=== PATIENT | male | born 1970 | race African-American/Black ===

== ENCOUNTER 2017-01-23 10:59 | Emergency (ER) | payer SELFPAY ==
[~2017-01-23] VITALS: Ht 190.5 cm; Wt 85.0 kg
[~2017-01-23 10:59] MED LIST: BACT800T5 PO; CEPH500C3 PO; HYDR-3535 PO; IBUP800T23 PO
[2017-01-23 11:01] VITALS: BP 119/81; PULSE 64; RESP 12; TEMP 98.4; O2SAT 100
[2017-01-23] MEDS ORDERED: IBUPROFEN 800 MG TAB PO ONE (11:45)
[2017-01-23] MEDS ORDERED: IBUP1TAB7 PO (11:53)
--- NOTE | 2017-01-23 11:53 | PD ---
HPI Chief Complaint: Bite or Sting Time Seen by Provider: 11:43 Travel History International Travel<30 days: No Contact w/Intl Traveler<30days: No History of Present Illness HPI 46-year-old male presents to the emergency Department with complaint of left knee pain and swelling 2 weeks. Denies injury. Thinks he got bit by a spider causing the swelling. Location of pain is to the medial and posterior aspect of the knee. Denies fever, vomiting. Denies paresthesias, loss of sensation, decreased range of motion, decreased strength to the affected extremity. He is ambulatory in the affected extremity. Has been taking Miladys aspirin for symptom management. Rates pain 8/10. Describes pain as throbbing and sometimes shooting. Pain is aggravated with flexion, ambulation, palpation. Pain decreased while at rest. Has no other medical complaints. No known allergies. No other modifying factors or associated signs and symptoms. PFSH Social History Alcohol Use: No Tobacco Use: Yes Substance Use: Yes Allergies-Medications (Allergen,Severity, Reaction): Coded Allergies: No Known Allergies (Verified Adverse Reaction, Unknown, 01/23/17) Reported Meds & Prescriptions Reported Meds & Active Scripts Active Keflex (Cephalexin) 500 Mg Cap 500 Mg PO Q8H 7 Days Ibuprofen 800 Mg Tab 800 Mg PO Q6HR PRN Keflex (Cephalexin Monohydrate) 500 Mg Cap 1 Tab PO QID 10 Days Bactrim DS (Sulfamethoxazole-Trimethoprim DS) 1 Tab Tab 1 Tab PO BID 10 Days Ibuprofen 800 Mg Tab 800 Mg PO TID 10 Days Reported Lortab 10 mg/325 mg (Hydrocodone/Acetaminophen 10 mg/325 mg) 1 Tab 1 Tab PO Q4H PRN Review of Systems Except as stated in HPI: all other systems reviewed are Neg Physical Exam Narrative GENERAL: Well-nourished, well-developed black male patient, in no acute distress ; afebrile, nontoxic-appearing SKIN: Warm and dry. HEAD: Atraumatic. Normocephalic. EYES: Pupils equal and round. No scleral icterus. No injection or drainage. ENT: Mucosa pink and moist. Airway patent. NECK: Trachea midline. CARDIOVASCULAR: Regular rate. RESPIRATORY: No accessory muscle use. GASTROINTESTINAL: Flat. MUSCULOSKELETAL: Left knee mildly edematous, nonerythematous, and without ecchymosis; full range of motion and flexion to 90; point tenderness to the medial and posterior aspect; joint stable with negative drawer test; no obvious deformity. Left Lower extremity is supple and non-tense with 2+ pedal pulse and sensory intact and without erythema or edema. No cyanosis. NEUROLOGICAL: Awake and alert. Oriented 3. No obvious cranial nerve deficits. Motor grossly within normal limits. Normal speech. PSYCHIATRIC: Appropriate mood and affect; insight and judgment normal. Data Data Last Documented VS Vital Signs Date Time Temp Pulse Resp B/P (MAP) Pulse Ox O2 Delivery O2 Flow Rate FiO2 01/23/17 12:26 01/23/17 11:01 98.4 64 12 100 Orders Orders Ibuprofen (Motrin) (01/23/17 11:45) Knee, Complete (4vws) (01/23/17 11:42) Crutches (01/23/17 11:42) Ed Discharge Order (01/23/17 12:25) MDM Medical Decision Making Medical Screen Exam Complete: Yes Emergency Medical Condition: Yes Medical Record Reviewed: Yes Differential Diagnosis Arthritis, bursitis, knee strain, less likely insect bite Narrative Course 46-year-old male with left knee pain. Ibuprofen administered in the ER. Left knee x-ray ordered. 1219: Left knee xray concludes: Knee X-Ray 01/23/17 1142 Signed Impressions: Service Date/Time: Monday, January 23, 2017 11:50 - CONCLUSION: Soft tissue swelling otherwise normal appearing osseous structures. Asa Michel MD X-ray report discussed with the patient. Patient is requesting antibiotics because he thinks the swelling is due to insect bite. I do not see any area around the knee that is consistent with cellulitis and the knee is without erythema. I discussed this with the patient and he would like a prescription for antibiotics. Keflex and ibuprofen prescribed for home. Patient refused crutches. Instructed patient to follow up with orthopedics as needed. Instructed patient to follow up with primary care provider. Patient verbalizes understanding and agreement with treatment plan. Patient is medically cleared and stable for discharge. Discussed reasons to return to the emergency department. Patient agrees with treatment plan. The patients vital signs are stable and the patient is stable for outpatient follow-up and treatment. Patient discharged home, stable and in no acute distress. Diagnosis Primary Impression: Left knee pain Qualified Codes: M25.562 - Pain in left knee Referrals: [facility] Orthopaedic Surgeon Primary Care Physician Patient Instructions: General Instructions, Knee Pain (ED) Additional Instructions: Tylenol or ibuprofen as needed and as directed to reduce pain and inflammation Rest, ice, compress, and elevate extremity to decrease pain and inflammation Knee brace for support Crutches for support Avoid aggravating activity; increase activity as tolerated Follow-up with primary care provider Follow-up with orthopedics Return to the emergency department immediately with worsening symptoms Med/Other Pt SpecificInfo: Prescription(s) given Scripts Cephalexin (Keflex) 500 Mg Cap 500 MG PO Q8H for Infection for 7 Days, #21 CAP 0 Refills Prov: Anai Mejía 01/23/17 Ibuprofen (Ibuprofen) 800 Mg Tab 800 MG PO Q6HR Y for PAIN, #30 TAB 0 Refills Prov: Anai Mejía 01/23/17 Disposition: 01 DISCHARGE HOME Condition: Stable Anai Mejía Jan 23, 2017 11:53
--- NOTE | 2017-01-23 12:17 | RADRPT ---
EXAM DATE/TIME: 01/23/2017 11:50 [facility] COMPARISON: No previous studies available for comparison. INDICATIONS : Pain and swelling left knee, possible insect bite MEDICAL HISTORY : None. SURGICAL HISTORY : None. ENCOUNTER: Initial ACUITY: 2 weeks PAIN SCORE: 8/10 LOCATION: Left Knee FINDINGS: Four view examination of the left knee demonstrates no evidence of fracture or dislocation. Bony min eralization is normal. The articular surfaces are intact. Soft tissue swelling is identified in the distal thigh. CONCLUSION: Soft tissue swelling otherwise normal appearing osseous structures. Asa Michel MD on January 23, 2017 at 12:15 Board Certified Radiologist. This report was verified electronically.
[2017-01-23] MEDS ORDERED: CEPH-460 PO (12:25)
== END 2017-01-23 12:33 | disposition home or self-care (01) ==
LOC: NEPK 10:59
DX: M25.562 Pain in left knee (principal); R22.42 Localized swelling, mass and lump, left lower limb; Z72.0 Tobacco use
CPT/HCPCS: 73564; 99283; E0113; L1830

== ENCOUNTER 2017-04-20 10:48 | Emergency (ER) | payer SELFPAY ==
[~2017-04-20] VITALS: Ht 190.5 cm; Wt 86.0 kg
[~2017-04-20 10:48] MED LIST changes: +CEPH-460 PO; +IBUP1TAB7 PO
[2017-04-20 10:49] VITALS: BP 134/77; PULSE 72; RESP 16; TEMP 99.1; O2SAT 98
[2017-04-20] MEDS ORDERED: KETOROLAC TROMETHAMINE 60 MG/2 ML (IM) VIAL IM ONE (11:00)
[2017-04-20] MEDS ORDERED: MORPHINE SULFATE 4 MG/ML INJ IM ONE (11:00)
[2017-04-20] MEDS ORDERED: ONDANSETRON ODT 4 MG TAB PO ONE (11:00)
--- NOTE | 2017-04-20 11:27 | PD ---
HPI Chief Complaint: Pain: Acute or Chronic Time Seen by Provider: 10:57 Travel History International Travel<30 days: No Contact w/Intl Traveler<30days: No Traveled to known affect area: No History of Present Illness HPI 46-year-old male that presents to the ED for evaluation of back pain. Per patient she's had back pain since 2014 but the past couple days she's been having worsening symptoms. History is limited as patient does appear to be in significant discomfort. He is able to really answer questions more than yes or no and he appears to be in a lot of pain. Per patient his pain is severe. Seems to come in spasms. Per patient he denies any injury but states that he's been working a lot. He denies any numbness, tilling, weakness. No urinary or bowel movement issues.Has not seen anybody for this. Per patient he is not taking anything for this. Pain appears to be 10 out of 10. Has no allergies to medication. No other medical issues at this time. [facility] [place] Social History Alcohol Use: No Tobacco Use: Yes Substance Use: Yes Allergies-Medications (Allergen,Severity, Reaction): Coded Allergies: No Known Allergies (Verified Adverse Reaction, Unknown, 01/23/17) Reported Meds & Prescriptions Reported Meds & Active Scripts Active Robaxin (Methocarbamol) 500 Mg Tab 500 Mg PO QID Hydrocodone-Acetaminophen 5-325 mg Tab 1 Tab PO Q4H PRN Diclofenac Sodium DR (Diclofenac Sodium) 75 Mg Tabdr 75 Mg PO BID PRN Keflex (Cephalexin) 500 Mg Cap 500 Mg PO Q8H 7 Days Ibuprofen 800 Mg Tab 800 Mg PO Q6HR PRN Keflex (Cephalexin Monohydrate) 500 Mg Cap 1 Tab PO QID 10 Days Bactrim DS (Sulfamethoxazole-Trimethoprim DS) 1 Tab Tab 1 Tab PO BID 10 Days Ibuprofen 800 Mg Tab 800 Mg PO TID 10 Days Reported Lortab 10 mg/325 mg (Hydrocodone/Acetaminophen 10 mg/325 mg) 1 Tab 1 Tab PO Q4H PRN Review of Systems Except as stated in HPI: all other systems reviewed are Neg Physical Exam Narrative GENERAL: SKIN: Warm and dry. HEAD: Atraumatic. Normocephalic. EYES: Pupils equal and round. No scleral icterus. No injection or drainage. ENT: No nasal bleeding or discharge. Mucous membranes pink and moist. NECK: Trachea midline. No JVD. CARDIOVASCULAR: Regular rate and rhythm. RESPIRATORY: No accessory muscle use. Clear to auscultation. Breath sounds equal bilaterally. GASTROINTESTINAL: Abdomen soft, non-tender, nondistended. Hepatic and splenic margins not palpable. MUSCULOSKELETAL: Extremities without clubbing, cyanosis, or edema. No obvious deformities. Hard to assess secondary to patient's discomfort. Patient does appear to have pain on the lumbar musculature but cannot have an sit up without severe pain. Starlix appears to be negative bilaterally. 2+ pulses bilaterally. No thoracic or cervical spine tenderness to palpation. Neurovascular intact. NEUROLOGICAL: Awake and alert. No obvious cranial nerve deficits. Motor grossly within normal limits. Five out of 5 muscle strength in the arms and legs. Normal speech. PSYCHIATRIC: Appropriate mood and affect; insight and judgment normal. Data Data Last Documented VS Vital Signs Date Time Temp Pulse Resp B/P (MAP) Pulse Ox O2 Delivery O2 Flow Rate FiO2 04/20/17 10:49 99.1 72 16 134/77 (96) 98 Room Air Orders Orders Spine, Lumbar Comp W/Obliq (04/20/17 ) Ketorolac Inj (Toradol Inj) (04/20/17 11:00) Morphine Inj (Morphine Inj) (04/20/17 11:00) Ondansetron Odt (Zofran Odt) (04/20/17 11:00) Ed Discharge Order (04/20/17 12:21) [facility] Medical Decision Making Medical Screen Exam Complete: Yes Emergency Medical Condition: Yes Medical Record Reviewed: Yes Interpretation(s) X-ray of the lumbar spine show no sign of bony injury but chronic changes, per radiologist consider spinal stenosis Differential Diagnosis Acute on chronic pain versus chronic pain versus degenerative disc disease versus herniated disc versus muscle spasm Narrative Course 46-year-old male that presents to the ED for evaluation of back pain. Patient was properly examined and was found to have signs and symptoms consistent appears to be acute on chronic back pain. X-ray will be ordered as patient is below discomfort and cannot rule out more significant injury. The history is somewhat limited because patient's pain. Patient will be given medications for pain to help make her more comfortable. Patient was given morphine and Toradol IM as well as Zofran by mouth. X-ray was negative for acute disease other than chronic disease with possible spinal stenosis. Patient was counseled on findings. No sign of acute neurological deficit. At this time patient feels improved. Patient will be sent home with prescriptions for Lortab, Robaxin, diclofenac sodium and prednisone (told not to take robaxin and lortab together as it will cause more sedation). Told to follow closely with PCP. Given note for work. Ice or warm compresses recommended. No heavy lifting until better. Follow with back specialist. See ED worsening symptoms. Diagnosis Primary Impression: Acute exacerbation of chronic low back pain Patient Instructions: General Instructions, Narcotic given in the ED Additional Instructions: Take medications as prescribed. Follow-up with PCP. See ED for any worsening symptoms. Do not drink or drive while taking pain medication. Apply ice or heat as needed for pain Med/Other Pt SpecificInfo: Prescription(s) given Scripts Prednisone (Prednisone) 20 Mg Tab 20 MG PO BID for 5 Days, #10 TAB 0 Refills Prov: Fidencio Sampson MD 04/20/17 Methocarbamol (Robaxin) 500 Mg Tab 500 MG PO QID for Muscle Spasm, #14 TAB 0 Refills Prov: Fidencio Sampson MD 04/20/17 Hydrocodone-Acetaminophen (Hydrocodone-Acetaminophen) 5-325 mg Tab 1 TAB PO Q4H Y for PAIN, #12 TAB 0 Refills Prov: Fidencio Sampson MD 04/20/[address] (Diclofenac Sodium DR) 75 Mg Tabdr 75 MG PO BID Y for PAIN SCALE 1 TO 10, #20 TAB 0 Refills Prov: Fidencio Sampson MD 04/20/17 Disposition: 01 DISCHARGE HOME Condition: Stable Catarino Ryan Apr 20, 2017 11:27
[2017-04-20] MEDS ORDERED: ROBA500T PO (11:35)
[2017-04-20] MEDS ORDERED: HYDR-3516 PO (11:35)
[2017-04-20] MEDS ORDERED: DICL75TA PO (11:35)
--- NOTE | 2017-04-20 12:18 | RADRPT ---
EXAM DATE/TIME: 04/20/2017 11:22 [facility] COMPARISON: No previous studies available for comparison. INDICATIONS : Lower back pain due to spasms. MEDICAL HISTORY : None. SURGICAL HISTORY : None. ENCOUNTER: Initial ACUITY: 1 day PAIN SCORE: 10/10 LOCATION: Right lower back. FINDINGS: There is minimal loss of disc space height at L5-S1 with mild degenerative change in the facets. 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 SI joints are normal. CONCLUSION: Degenerative changes L5-S1 and moderate facet disease. Lumbar spinal stenosis would be consideration. Tanvir Hylton MD FACR on April 20, 2017 at 12:16 Board Certified Radiologist. This report was verified electronically.
[2017-04-20] MEDS ORDERED: PRED20 PO (12:22)
[2017-04-20 12:41] VITALS: RESP 16
== END 2017-04-20 12:42 | disposition home or self-care (01) ==
LOC: NEPK 10:48
DX: M54.5 Low back pain (principal); G89.29 Other chronic pain; Z72.0 Tobacco use
CPT/HCPCS: 72110; 96372; 99283; J1885; J2270